=== PATIENT | male | born 1980 | race Caucasian/White ===

== ENCOUNTER 2020-10-25 06:56 | Outpatient (NON) | payer OTHER, SELFPAY ==
[2020-10-26 23:40] LABS: SARS-CoV-2 RNA PCR Negative
== END 2020-10-25 06:57 ==
PROVIDERS: Visit Provider Internal Medicine
DX: R68.89 Other general symptoms and signs (principal); Z20.828 Contact with and (suspected) exposure to other viral communicable diseases
CPT/HCPCS: 87635; C9803; U0003